=== PATIENT | female | born 1975 | race Caucasian/White ===

== ENCOUNTER 2017-04-13 20:06 | Emergency (ER) | payer MEDICAID ==
[~2017-04-13] VITALS: Ht 147.3 cm; Wt 65.8 kg
[2017-04-13 20:08] VITALS: BP 118/78
--- NOTE | 2017-04-13 20:08 | NUR ---
BIBA TO ER OF1
--- NOTE | 2017-04-13 20:36 | NUR ---
Patient being evaluated by DR. EUGENE at bedside.
[2017-04-13] MEDS ORDERED: KETOROLAC 30 MG/ML VIAL IM ONE (20:40)
[2017-04-13] MEDS ORDERED: LORazepam 1 MG TAB PO ONE (20:40)
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
[2017-04-13 21:50] LABS: BASOPHILS # (AUTO) 0.1 K/uL (0.00-0.22); BASOPHILS % (AUTO) 1.7 % (0.0-2.0); EOSINOPHILS # (AUTO) 0.2 K/uL (0-0.4); EOSINOPHILS % (AUTO) 2.4 % (0.0-4.0); HEMOGLOBIN 9.9 g/dL (12.0-16.0); LYMPHOCYTES # (AUTO) 1.3 K/uL (2.5-16.5); LYMPHOCYTES % (AUTO) 15.6 % (20.5-51.1); MEAN CORPUSCULAR HEMOGLOBIN 23 pg (27-31); MEAN CORPUSCULAR HGB CONC 32 g/dL (33-37); MEAN CORPUSCULAR VOLUME 72 fL (80-94); MONOCYTES # (AUTO) 0.6 K/uL (0.8-1.0); MONOCYTES % (AUTO) 7.6 % (1.7-9.3); NEUTROPHILS # (AUTO) 6.3 K/uL (1.8-7.7); NEUTROPHILS % (AUTO) 72.7 % (42.2-75.2); PLATELET COUNT (AUTO) 287 K/uL (140-450); RED BLOOD CELL COUNT(AUTO) 4.28 MIL/uL (4.20-5.40); RED CELL DISTRIBUTION WIDTH 18.1 % (11.6-13.7); WHITE BLOOD COUNT (AUTO) 8.5 K/uL (4.8-10.8)
[2017-04-13 22:00] LABS: ANION GAP 10.1 (8-16); CARBON DIOXIDE 26.9 mmol/L (21-32); CREATININE 0.9 mg/dL (0.6-1.3)
--- NOTE | 2017-04-13 22:30 | NUR ---
Patient discharged with v/s stable. Written and verbal after care instructions given and explained. Patient verbalized understanding. Ambulatory with steady gait. All questions addressed prior to discharge. Advised to follow up with PMD.
[2017-04-13 22:33] VITALS: BP 109/69
== END 2017-04-13 22:30 | disposition home or self-care (01) ==
LOC: MED 20:06
DX: F07.81 Postconcussional syndrome (principal)
CPT/HCPCS: 36415; 80048; 84484; 85025; 93005; 96372; 99285; J1885

== ENCOUNTER 2017-08-15 12:38 | Emergency (ER) | payer MEDICAID ==
[~2017-08-15] VITALS: Ht 142.2 cm; Wt 67.6 kg
[2017-08-15 12:43] VITALS: BP 116/72
--- NOTE | 2017-08-15 12:48 | NUR ---
PATIENT PRESENTS TO ED WITH C/O DIZZINESS SINCE YESTERDAY AND C/O VOMITING WITH AMBULATING HX; DENIES; DENIES DIARRHEA; SKIN IS PINK/WARM/DRY; AAOX4 WITH EVEN AND STEADY GAIT; LUNGS CLEAR BL; HR EVEN AND REGULAR; PT DENIES ANY FEVER, CP, SOB, OR COUGH AT THIS TIME; PATIENT STATES PAIN OF 10/10 AT THIS TIME; VSS; PATIENT POSITIONED FOR COMFORT; HOB ELEVATED; BEDRAILS UP X2; BED DOWN. ER MD MADE AWARE OF PT STATUS.
[2017-08-15] MEDS ORDERED: ONDANSETRON 4 MG ODT PO ONE (12:55)
[2017-08-15] MEDS ORDERED: KETOROLAC 30 MG/ML VIAL IVP ONE (13:00)
[2017-08-15] MEDS ORDERED: NACL 0.9% 1,000 ML IV ONE ×2 (13:00→13:50)
[2017-08-15] MEDS ORDERED: ONDANSETRON 4 MG/2 ML VIAL IVP ONE (13:00)
[2017-08-15] MEDS ORDERED: DICYCLOMINE HCL LIQUID 20 MG, ALUMINUM HYD/MAG/SIMETHICONE 30 ML, LIDOCAINE VISCOUS 2% ... PO ONE ×3 (13:50)
[2017-08-15 14:26] VITALS: BP 126/86
--- NOTE | 2017-08-15 14:26 | NUR ---
Patient discharged with v/s stable. Written and verbal after care instructions given and explained. Patient alert, oriented and verbalized understanding of instructions. Ambulatory with steady gait. All questions addressed prior to discharge. ID band removed. Patient advised to follow up with PMD. Rx of ZOFRAN, MOTRIN given. Patient educated on indication of medication including possible reaction and side effects. Opportunity to ask questions provided and answered.
== END 2017-08-15 14:26 | disposition home or self-care (01) ==
LOC: MED 12:38
DX: R11.2 Nausea with vomiting, unspecified (principal); R10.13 Epigastric pain; R42 Dizziness and giddiness
CPT/HCPCS: 81002; 81025; 96361; 96374; 96375; 99284; J1885; J2405; J7030; S0119

== ENCOUNTER 2017-09-27 19:49 | Emergency (ER) | payer MEDICAID ==
[~2017-09-27] VITALS: Ht 144.8 cm; Wt 67.8 kg
[2017-09-27 20:02] VITALS: BP 128/88
--- NOTE | 2017-09-27 20:06 | NUR ---
42/F CAME IN W C/O 03/31 RT FLANK PAIN, NONRADIAITING, ACUTE ONSET X 3 HOURS AGO. REPORTS NAUSEA, DENIES V/D, FEVER/CHILLS, DENIES HEMATURIA/DYSURIA. ABD SOFT, ROUND, BS ACTIVE X4, +TENDERNESS TO RT FLANK. DENIES OTHER PMH/RX/OTC
[2017-09-27] MEDS ORDERED: MORPHINE SULFATE 4 MG/ML SYR IVP ONE ×2 (20:35→21:20)
[2017-09-27] MEDS ORDERED: NACL 0.9% 1,000 ML IV ONE (20:35)
[2017-09-27] MEDS ORDERED: ONDANSETRON 4 MG/2 ML VIAL IVP ONE (20:35)
[2017-09-27 20:55] LABS: BASOPHILS % (AUTO) 0.3 % (0.0-2.0); EOSINOPHILS # (AUTO) 0.3 K/uL (0-0.4); EOSINOPHILS % (AUTO) 3.6 % (0.0-4.0); HEMATOCRIT 27.2 % (36-48); HEMOGLOBIN 8.5 g/dL (12.0-16.0); LYMPHOCYTES # (AUTO) 1.7 K/uL (2.5-16.5); LYMPHOCYTES % (AUTO) 23.9 % (20.5-51.1); MEAN CORPUSCULAR HEMOGLOBIN 22 pg (27-31); MEAN CORPUSCULAR HGB CONC 31 g/dL (33-37); MONOCYTES # (AUTO) 0.6 K/uL (0.8-1.0); MONOCYTES % (AUTO) 8.1 % (1.7-9.3); NEUTROPHILS # (AUTO) 4.6 K/uL (1.8-7.7); NEUTROPHILS % (AUTO) 64.1 % (42.2-75.2); PLATELET COUNT (AUTO) 239 K/uL (140-450); RED BLOOD CELL COUNT(AUTO) 3.83 MIL/uL (4.20-5.40); RED CELL DISTRIBUTION WIDTH 18.2 % (11.6-13.7); WHITE BLOOD COUNT (AUTO) 7.2 K/uL (4.8-10.8)
[2017-09-27 20:56] LABS: APPEARANCE,URINE CLEAR (CLEAR); BILIRUBIN,URINE NEGATIVE (NEGATIVE); BLOOD, URINE NEGATIVE (NEGATIVE); COLOR,URINE YELLOW (YELLOW); LEUKOCYTE ESTERASE ,URINE NEGATIVE (NEGATIVE); NITRITE, URINE NEGATIVE (NEGATIVE); UGLUCOSE NEGATIVE (NEGATIVE)
[2017-09-27 21:03] LABS: ANION GAP 13.2 (8-16); CARBON DIOXIDE 26.2 mmol/L (21-32); CREATININE 0.7 mg/dL (0.6-1.3); POTASSIUM 3.4 mmol/L (3.5-5.1)
[2017-09-27 21:09] LABS: ALBUMIN 3.4 g/dL (3.4-5.0); TOTAL BILIRUBIN 0.2 mg/dL (0.0-1.0)
--- NOTE | 2017-09-27 22:05 | NUR ---
PT BACK FROM CT
--- NOTE | 2017-09-27 22:31 | NUR ---
REPORTS IMPROVEMENT OF PAIN /10 TO RLQ. ER MADE AWARE
--- NOTE | 2017-09-27 22:36 | NUR ---
ULTRASOUND AT BEDSIDE
--- NOTE | 2017-09-27 23:50 | NUR ---
radiology called US tech for patient.
--- NOTE | 2017-09-28 01:00 | NUR ---
Patient appears to be resting comfortably in bed. Vital Signs within normal limits. Respirations even and unlabored. REPORTS 08/29 TO RUQ ABD PAIN
--- NOTE | 2017-09-28 01:45 | NUR ---
US AT BEDSIDE
--- NOTE | 2017-09-28 02:45 | NUR ---
Patient appears to be resting comfortably in bed. Vital Signs within normal limits. Respirations even and unlabored. denies any pain at this time
[2017-09-28 03:24] VITALS: BP 112/76
== END 2017-09-28 03:24 | disposition home or self-care (01) ==
LOC: MED 19:49
DX: K59.00 Constipation, unspecified (principal); D64.9 Anemia, unspecified; E87.6 Hypokalemia; Z90.49 Acquired absence of other specified parts of digestive tract
CPT/HCPCS: 36415; 74177; 76705; 76856; 80053; 81003; 81025; 83605; 83690; 84702; 85025; 87040; 96361; 96374; 96375; 96376; 99285; J2270; J2405; J7030; Q0092; Q9967

== ENCOUNTER 2017-11-05 21:05 | Emergency (ER) | payer MEDICAID ==
[~2017-11-05] VITALS: Ht 142.2 cm; Wt 70.1 kg
[2017-11-05 21:18] VITALS: BP 117/74
--- NOTE | 2017-11-05 21:20 | NUR ---
PT.AMBULATED TO [facility]
--- NOTE | 2017-11-05 22:28 | NUR ---
PT AMBULATORY TO BED 7 W/ STEADY GAIT.
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
[2017-11-05] MEDS ORDERED: MORPHINE SULFATE 4 MG/ML SYR IVP ONE (23:00)
--- NOTE | 2017-11-06 | NUR ---
PT RESTING COMFORTABLY, VSS, RR EVEN AND UNLABORED. ALL NEEDS MET.
[2017-11-06 00:09] LABS: BASOPHILS # (AUTO) 0.1 K/uL (0.00-0.22); BASOPHILS % (AUTO) 1.6 % (0.0-2.0); EOSINOPHILS # (AUTO) 0.3 K/uL (0-0.4); EOSINOPHILS % (AUTO) 4.2 % (0.0-4.0); HEMATOCRIT 28.4 % (36-48); HEMOGLOBIN 8.8 g/dL (12.0-16.0); LYMPHOCYTES # (AUTO) 1.3 K/uL (2.5-16.5); LYMPHOCYTES % (AUTO) 21.3 % (20.5-51.1); MEAN CORPUSCULAR HEMOGLOBIN 22 pg (27-31); MEAN CORPUSCULAR HGB CONC 31 g/dL (33-37); MEAN CORPUSCULAR VOLUME 70.5 fL (80-94); MONOCYTES # (AUTO) 0.5 K/uL (0.8-1.0); MONOCYTES % (AUTO) 7.5 % (1.7-9.3); NEUTROPHILS # (AUTO) 3.9 K/uL (1.8-7.7); NEUTROPHILS % (AUTO) 65.4 % (42.2-75.2); PLATELET COUNT (AUTO) 275 K/uL (140-450); RED BLOOD CELL COUNT(AUTO) 4.02 MIL/uL (4.20-5.40); RED CELL DISTRIBUTION WIDTH 18.1 % (11.6-13.7); WHITE BLOOD COUNT (AUTO) 6.1 K/uL (4.8-10.8)
[2017-11-06 00:31] LABS: PROTHROMBIN TIME 10.2 secs (10.8-13.4)
[2017-11-06 01:14] LABS: APPEARANCE,URINE CLEAR (CLEAR); COLOR,URINE RED (YELLOW)
[2017-11-06 01:15] LABS: BILIRUBIN,URINE 1+ (NEGATIVE); BLOOD, URINE 3+ (NEGATIVE); LEUKOCYTE ESTERASE ,URINE 1+ (NEGATIVE); NITRITE, URINE NEGATIVE (NEGATIVE); UGLUCOSE NEGATIVE (NEGATIVE)
[2017-11-06 01:49] LABS: RBC,URINE TOO NUMEROUS TO COUN /HPF (0-5)
[2017-11-06 01:57] LABS: ANION GAP 14.6 (8-16); CARBON DIOXIDE 24.9 mmol/L (21-32); CHLORIDE 103 mmol/L (98-107); CREATININE 0.8 mg/dL (0.6-1.3); GFR ARICAN-AMERICAN 101 mL/min (>90); GLUCOSE 126 mg/dL (74-106); POTASSIUM 3.5 mmol/L (3.5-5.1); SODIUM SERUM 139 mmol/L (136-145); UREA NITROGEN, BLOOD 14 mg/dL (7-18)
[2017-11-06 01:58] LABS: ALBUMIN 3.5 g/dL (3.4-5.0); AMYLASE 63 U/L (25-115); ASPARTATE AMINOTRANSFERASE 24 U/L (15-37); LIPASE 183 U/L (73-393)
--- NOTE | 2017-11-06 02:03 | NUR ---
PT RESTING COMFORTABLY, VSS, RR EVEN AND UNLABORED. ALL NEEDS MET.
[2017-11-06] MEDS ORDERED: cefTRIAXone 1,000 MG VIAL ONE (02:49)
[2017-11-06 03:41] VITALS: BP 145/74
--- NOTE | 2017-11-06 03:42 | NUR ---
Patient discharged with v/s stable. Written and verbal after care instructions given and explained. Patient alert, oriented and verbalized understanding of instructions. Ambulatory with steady gait. All questions addressed prior to discharge. ID band removed. Patient advised to follow up with PMD. Rx of CEPHALEXIN 500MG given. Patient educated on indication of medication including possible reaction and side effects. Opportunity to ask questions provided and answered.
== END 2017-11-06 03:42 | disposition home or self-care (01) ==
LOC: MED 21:05
DX: N39.0 Urinary tract infection, site not specified (principal)
CPT/HCPCS: 36415; 74176; 80053; 81001; 81025; 82150; 83605; 83690; 84484; 85025; 85610; 87040; 87086; 93005; 96365; 96375; 99284; J0696; J2270; J7060

== ENCOUNTER 2018-06-01 13:00 | Emergency (ER) | payer MEDICAID ==
[~2018-06-01] VITALS: Ht 154.9 cm; Wt 63.5 kg
[2018-06-01 13:10] VITALS: BP 114/84
[2018-06-01] MEDS ORDERED: ONDANSETRON 4 MG/2 ML VIAL IVP ONE (14:30)
[2018-06-01] MEDS ORDERED: NACL 0.9% 1,000 ML IV ONE (14:30)
[2018-06-01 14:52] LABS: BASOPHILS % (AUTO) 0.3 % (0.0-2.0); EOSINOPHILS % (AUTO) 0.4 % (0.0-4.0); HEMATOCRIT 28.9 % (36-48); LYMPHOCYTES # (AUTO) 1.1 K/uL (2.5-16.5); MEAN CORPUSCULAR HEMOGLOBIN 22 pg (27-31); MEAN CORPUSCULAR HGB CONC 31 g/dL (33-37); MEAN CORPUSCULAR VOLUME 69.8 fL (80-94); MONOCYTES # (AUTO) 0.5 K/uL (0.8-1.0); NEUTROPHILS # (AUTO) 7.6 K/uL (1.8-7.7); NEUTROPHILS % (AUTO) 82.3 % (42.2-75.2); PLATELET COUNT (AUTO) 300 K/uL (140-450); RED BLOOD CELL COUNT(AUTO) 4.14 MIL/uL (4.20-5.40); RED CELL DISTRIBUTION WIDTH 19.5 % (11.6-13.7); WHITE BLOOD COUNT (AUTO) 9.3 K/uL (4.8-10.8)
[2018-06-01 15:14] LABS: ALBUMIN 3.5 g/dL (3.4-5.0); ANION GAP 14.7 (8-16); CARBON DIOXIDE 24.8 mmol/L (21-32); CREATININE 0.6 mg/dL (0.6-1.3); POTASSIUM 3.5 mmol/L (3.5-5.1); TOTAL BILIRUBIN 0.2 mg/dL (0.0-1.0)
[2018-06-01 16:15] VITALS: BP 101/48
== END 2018-06-01 16:15 | disposition home or self-care (01) ==
LOC: MED 13:00
DX: R19.7 Diarrhea, unspecified (principal); R10.9 Unspecified abdominal pain; R42 Dizziness and giddiness; R51 Headache
CPT/HCPCS: 36415; 80053; 81025; 85025; 96361; 96374; 99283; J2405; J7030

== ENCOUNTER 2018-07-27 08:03 | Emergency (ER) | payer MEDICAID ==
[~2018-07-27] VITALS: Ht 147.3 cm; Wt 68.0 kg
[2018-07-27 08:22] VITALS: BP 128/87
--- NOTE | 2018-07-27 08:22 | NUR ---
TO BED 9 AMBULATORYM MEDICATED PER PROTOCOL TOLERATED WELL.
[2018-07-27] MEDS ORDERED: ACETAMINOPHEN EXTRA STRENGTH 500 MG TAB PO ONE (08:25)
--- NOTE | 2018-07-27 08:31 | NUR ---
Ancelmo alcantar in [facility] - 07/27/18 at 0831 by RUKHSANA PATIENT AMBULATED TO BED 9 AT THIS TIME.
--- NOTE | 2018-07-27 08:46 | NUR ---
PATIENT PRESENTS TO ED WITH accompanied by c/o fever/chills, hacking cough, nasal/chest congestion, bodyaches, fatigue x 2 days seen in [facility] yesterday; adds feels much worse today pt appearing lethargic---denies n/v/d . SKIN IS PINK/WARM/DRY; AAOX4 WITH EVEN AND STEADY GAIT; LUNGS CLEAR BL; HR EVEN AND REGULAR;; PATIENT STATES PAIN OF 8/10 AT THIS TIME; VSS; PATIENT POSITIONED FOR COMFORT; HOB ELEVATED; BEDRAILS UP X2; BED DOWN. ER MD MADE AWARE OF PT STATUS.
--- NOTE | 2018-07-27 09:15 | NUR ---
REPORT RECEIVED FROM MARIELA SIMON.
--- NOTE | 2018-07-27 09:40 | NUR ---
MITER OPERATOR AT BEDSIDE
[2018-07-27] MEDS ORDERED: NACL 0.9% 2,000 ML IV SCH (09:51)
[2018-07-27] MEDS ORDERED: KETOROLAC 30 MG/ML VIAL IVP ONE (09:55)
[2018-07-27] MEDS ORDERED: diphenhydrAMINE 50 MG/ML VIAL IVP ONE (09:55)
[2018-07-27] MEDS ORDERED: METOCLOPRAMIDE 10 MG/2 ML INJ VIAL IVP ONE (09:55)
--- NOTE | 2018-07-27 10:00 | NUR ---
PT ON STRETCHER IN SUPINE POSITION WITH EYES OPEN, ALERT AND ORIENTED X 4, DENIES CP/SOB AT THIS TIME. NO IDENTIFIED REQUESTS AT THIS TIME.
[2018-07-27 10:34] LABS: APPEARANCE,URINE CLEAR (CLEAR); BILIRUBIN,URINE NEGATIVE (NEGATIVE); BLOOD, URINE TRACE-I (NEGATIVE); COLOR,URINE YELLOW (YELLOW); LEUKOCYTE ESTERASE ,URINE NEGATIVE (NEGATIVE); NITRITE, URINE NEGATIVE (NEGATIVE); UGLUCOSE NEGATIVE (NEGATIVE)
[2018-07-27 10:48] LABS: BASOPHILS % (AUTO) 0.1 % (0.0-2.0); EOSINOPHILS % (AUTO) 0.4 % (0.0-4.0); HEMATOCRIT 27.2 % (36-48); HEMOGLOBIN 8.5 g/dL (12.0-16.0); LYMPHOCYTES # (AUTO) 0.3 K/uL (2.5-16.5); LYMPHOCYTES % (AUTO) 5.2 % (20.5-51.1); MEAN CORPUSCULAR HEMOGLOBIN 21 pg (27-31); MEAN CORPUSCULAR HGB CONC 31 g/dL (33-37); MONOCYTES # (AUTO) 0.6 K/uL (0.8-1.0); MONOCYTES % (AUTO) 10.8 % (1.7-9.3); NEUTROPHILS # (AUTO) 4.9 K/uL (1.8-7.7); NEUTROPHILS % (AUTO) 83.5 % (42.2-75.2); PLATELET COUNT (AUTO) 240 K/uL (140-450); RED BLOOD CELL COUNT(AUTO) 4.01 MIL/uL (4.20-5.40); RED CELL DISTRIBUTION WIDTH 18.7 % (11.6-13.7); WHITE BLOOD COUNT (AUTO) 5.9 K/uL (4.8-10.8)
[2018-07-27 10:53] LABS: RBC,URINE 0-5 (RARE) /HPF (0-5); WBC,URINE 0-5 (RARE) /HPF (0-5)
[2018-07-27 11:06] LABS: ANION GAP 14.9 (8-16); CREATININE 0.6 mg/dL (0.6-1.3); POTASSIUM 3.9 mmol/L (3.5-5.1)
[2018-07-27 11:12] LABS: ALBUMIN 3.6 g/dL (3.4-5.0); TOTAL BILIRUBIN 0.3 mg/dL (0.0-1.0)
[2018-07-27 11:19] LABS: PROTHROMBIN TIME 10.1 secs (10.8-13.4)
--- NOTE | 2018-07-27 12:19 | NUR ---
PT AMBULATED TO RESTROOM WITHOUT INCIDENCE, PLACED BACK ON FULL MONITOR.
[2018-07-27 13:32] VITALS: BP 97/58
--- NOTE | 2018-07-27 13:32 | NUR ---
IV removed, catheter intact and site benign. Applied folded 4x4 gauze and tape to stop bleeding.
--- NOTE | 2018-07-27 13:33 | NUR ---
Patient discharged with v/s stable. Written and verbal after care instructions given and explained. Patient alert, oriented and verbalized understanding of instructions. Ambulatory with steady gait. All questions addressed prior to discharge. ID band removed. Patient advised to follow up with PMD. Rx of Tamiflu, Promethazine DM, and Motrin given. Patient educated on indication of medication including possible reaction and side effects. Opportunity to ask questions provided and answered.
== END 2018-07-27 13:33 | disposition home or self-care (01) ==
LOC: MED 08:03
DX: J10.1 Influenza due to other identified influenza virus with other respiratory manifestations (principal); A09 Infectious gastroenteritis and colitis, unspecified
CPT/HCPCS: 36415; 36600; 71045; 80053; 81001; 81025; 82803; 83605; 84484; 85025; 85610; 85730; 87040; 87086; 87804; 93005; 96361; 96374; 96375; 99284; J1200; J1885; J2765; J7030; Q0092

== ENCOUNTER 2018-10-20 19:46 | Emergency (ER) | payer MEDICAID ==
[~2018-10-20] VITALS: Ht 147.3 cm; Wt 69.9 kg
[2018-10-20 19:59] VITALS: BP 115/73
--- NOTE | 2018-10-20 19:59 | NUR ---
TO BED # 01 AMB. REPORT GIVEN TO TAMIKA SIMON
--- NOTE | 2018-10-20 20:00 | NUR ---
43 YO F BIB PRESENTS TO THE ED C/O RIGHT SIDE FLANK PAIN X 3 DAYS. PT DENIES NVD, FEVER, CHILL OR CHANGE IN BOWEL OR URINARY HABITS. DENIES DYSURIA, URINARY BURNING. -- ABD IS LARGE, SOFT, WITH RIGHT SIDED TENDERNESS PRESENT. BOWEL SOUNDS ACTIVE. LAST BM: TODAY. -- SKIN PINK, DRY, WARM. -- PT APPEARS TO BE IN PAIN, TEARFUL. COOPERATIVE, BEHAVIOR APPROPRIATE. PMH-- HYPERLIPIDEMIA RX- DENIES
[2018-10-20] MEDS ORDERED: MORPHINE SULFATE 4 MG/ML SYR IVP ONE ×2 (20:10→21:00)
[2018-10-20] MEDS ORDERED: NACL 0.9% 1,000 ML IV ONE (20:10)
[2018-10-20 20:30] LABS: BASOPHILS % (AUTO) 0.2 % (0.0-2.0); EOSINOPHILS # (AUTO) 0.3 K/uL (0-0.4); EOSINOPHILS % (AUTO) 3.4 % (0.0-4.0); HEMATOCRIT 25.7 % (36-48); LYMPHOCYTES # (AUTO) 1.5 K/uL (2.5-16.5); LYMPHOCYTES % (AUTO) 18.5 % (20.5-51.1); MEAN CORPUSCULAR HEMOGLOBIN 21 pg (27-31); MEAN CORPUSCULAR HGB CONC 31 g/dL (33-37); MONOCYTES # (AUTO) 0.7 K/uL (0.8-1.0); MONOCYTES % (AUTO) 8.1 % (1.7-9.3); NEUTROPHILS # (AUTO) 5.8 K/uL (1.8-7.7); NEUTROPHILS % (AUTO) 69.8 % (42.2-75.2); PLATELET COUNT (AUTO) 279 K/uL (140-450); RED BLOOD CELL COUNT(AUTO) 3.84 MIL/uL (4.20-5.40); WHITE BLOOD COUNT (AUTO) 8.3 K/uL (4.8-10.8)
--- NOTE | 2018-10-20 20:35 | NUR ---
US IN PROGRESS AT BEDSIDE.
--- NOTE | 2018-10-20 20:35 | NUR ---
PT RECEIVED MORPHINE 4 MG IVP FOR PAIN.
--- NOTE | 2018-10-20 21:00 | NUR ---
PT REPORTS 03/[address] PIERSON NOTIFIED. NEW ORDERS RECEIVED.
--- NOTE | 2018-10-20 21:10 | NUR ---
PT RECEIVED MORPHINE 4 MG IVP FOR PAIN.
[2018-10-20 21:13] LABS: APPEARANCE,URINE CLOUDY (CLEAR); BILIRUBIN,URINE NEGATIVE (NEGATIVE); BLOOD, URINE NEGATIVE (NEGATIVE); COLOR,URINE YELLOW (YELLOW); LEUKOCYTE ESTERASE ,URINE TRACE (NEGATIVE); NITRITE, URINE NEGATIVE (NEGATIVE); UGLUCOSE NEGATIVE (NEGATIVE)
--- NOTE | 2018-10-20 21:17 | NUR ---
PT TAKEN DOWN TO CT VIA WC.
[2018-10-20 21:22] LABS: ALBUMIN 3.4 g/dL (3.4-5.0); CARBON DIOXIDE 26.1 mmol/L (21-32); CREATININE 0.7 mg/dL (0.6-1.3); TOTAL BILIRUBIN 0.2 mg/dL (0.0-1.0)
[2018-10-20 21:24] LABS: RBC,URINE 0 /HPF (0-5); WBC,URINE 0-5 /HPF (0-5)
[2018-10-20 21:25] LABS: URINE AMORPHOUS URATE 3+ /HPF (None Seen)
--- NOTE | 2018-10-20 21:30 | NUR ---
PT RETURNED FROM CT.
[2018-10-20 21:33] LABS: POTASSIUM 3.8 mmol/L (3.5-5.1)
[2018-10-20 21:34] LABS: ANION GAP 12.7 (8-16)
--- NOTE | 2018-10-20 21:45 | NUR ---
PT REPORTS 8/[address] PIERSON NOTIFIED. PT WILL RECEIVE RX FOR PAIN MEDICATION.
--- NOTE | 2018-10-20 21:45 | NUR ---
CT REPORT: Impression: 1. No evidence for acute inflammatory process within the abdomen or pelvis. 2. There is no renal or ureteral stone identified. 3. A normal appendix is visualized within the right lower quadrant. 4. There is no bowel obstruction.
[2018-10-20 22:55] VITALS: BP 123/78
--- NOTE | 2018-10-20 22:55 | NUR ---
Patient discharged with v/s stable. Written and verbal after care instructions given and explained. Patient alert, oriented and verbalized understanding of instructions. Ambulatory with steady gait. All questions addressed prior to discharge. ID band removed. Patient advised to follow up with PMD. Rx of Andes given. Patient educated on indication of medication including possible reaction and side effects. Opportunity to ask questions provided and answered.
== END 2018-10-20 22:55 | disposition home or self-care (01) ==
LOC: MED 19:46
DX: R10.11 Right upper quadrant pain (principal); D64.9 Anemia, unspecified; R19.7 Diarrhea, unspecified
CPT/HCPCS: 36415; 74176; 76705; 80053; 81001; 83690; 85025; 96361; 96374; 96376; 99284; J2270; J7030; Q0092

== ENCOUNTER 2019-04-05 20:36 | Emergency (ER) | payer MEDICAID ==
[~2019-04-05] VITALS: Ht 142.2 cm; Wt 71.7 kg
[2019-04-05 20:47] VITALS: BP 131/71
--- NOTE | 2019-04-05 20:47 | NUR ---
PT AMBULATED TO BED WITH FAMILY
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
--- NOTE | 2019-04-05 21:29 | NUR ---
Dr. Zuluaga examining patient.
[2019-04-05 22:10] LABS: BASOPHILS % (AUTO) 0.3 % (0.0-2.0); EOSINOPHILS # (AUTO) 0.1 K/uL (0-0.4); EOSINOPHILS % (AUTO) 1.8 % (0.0-4.0); HEMATOCRIT 26.8 % (36-48); HEMOGLOBIN 8.3 g/dL (12.0-16.0); LYMPHOCYTES # (AUTO) 1.6 K/uL (2.5-16.5); LYMPHOCYTES % (AUTO) 21.8 % (20.5-51.1); MEAN CORPUSCULAR HEMOGLOBIN 21 pg (27-31); MEAN CORPUSCULAR HGB CONC 31 g/dL (33-37); MEAN CORPUSCULAR VOLUME 67.4 fL (80-94); MONOCYTES # (AUTO) 0.6 K/uL (0.8-1.0); MONOCYTES % (AUTO) 7.9 % (1.7-9.3); NEUTROPHILS # (AUTO) 5.2 K/uL (1.8-7.7); NEUTROPHILS % (AUTO) 68.2 % (42.2-75.2); PLATELET COUNT (AUTO) 290 K/uL (140-450); RED BLOOD CELL COUNT(AUTO) 3.98 MIL/uL (4.20-5.40); RED CELL DISTRIBUTION WIDTH 20.4 % (11.6-13.7); WHITE BLOOD COUNT (AUTO) 7.6 K/uL (4.8-10.8)
[2019-04-05 22:26] LABS: ANION GAP 10.7 (8-16); CARBON DIOXIDE 26.8 mmol/L (21-32); CREATININE 0.7 mg/dL (0.6-1.3); POTASSIUM 3.5 mmol/L (3.5-5.1)
[2019-04-05 22:33] LABS: ALBUMIN 3.4 g/dL (3.4-5.0); TOTAL BILIRUBIN 0.2 mg/dL (0.0-1.0)
[2019-04-05 23:34] VITALS: BP 120/88
--- NOTE | 2019-04-05 23:34 | NUR ---
DISCHARGE PAPERS GIVEN TO PT. STATES RELIEF. NO CHEST PAIN. VSS. RX OF IBUPROFEN GIVEN. PROVIDED WITH PHONE NUMBER AND ADDRESS TO PCP IN [facility]. INSTRUCTED TO F/U WITH PCP AND WHEN TO RETURN TO ER. PT VERBALLIZED UNDERSTANDING OF DC INSTRUCTIONS. ALL QUESTIONS ANSWERED.
== END 2019-04-05 23:34 | disposition home or self-care (01) ==
LOC: MED 20:36
DX: R07.9 Chest pain, unspecified (principal); D64.9 Anemia, unspecified; Z98.890 Other specified postprocedural states
CPT/HCPCS: 36415; 71045; 80053; 81025; 84484; 85025; 93005; 99284

== ENCOUNTER 2020-06-10 09:57 | Emergency (ER) | payer MEDICAID, SELFPAY ==
[~2020-06-10] VITALS: Ht 149.9 cm; Wt 74.8 kg
[2020-06-10 10:09] VITALS: BP 128/71
--- NOTE | 2020-06-10 10:14 | NUR ---
PATIENT TRIAGED. WAITING TO BE SEEN BY MD IN TENT.
--- NOTE | 2020-06-10 11:24 | NUR ---
PT PROVIDED A SANDWICH PER REQUEST
[2020-06-10 11:40] VITALS: BP 128/71
--- NOTE | 2020-06-10 11:40 | NUR ---
NOVEL SWAB DONE. WALKED TO LAB
--- NOTE | 2020-06-10 11:40 | NUR ---
Patient discharged with v/s stable. Written and verbal after care instructions given and explained. Patient alert, oriented and verbalized understanding of instructions. Ambulatory with steady gait. All questions addressed prior to discharge. ID band removed. Patient advised to follow up with PMD. Rx of ZOFRAN, TYLENOL, CODEINE given. Patient educated on indication of medication including possible reaction and side effects. Opportunity to ask questions provided and answered.
== END 2020-06-10 11:40 | disposition home or self-care (01) ==
LOC: MED 09:57
DX: U07.1 COVID-19 (principal); B34.9 Viral infection, unspecified
CPT/HCPCS: 99283; U0003

== ENCOUNTER 2020-12-11 20:04 | Emergency (ER) | payer MEDICAID, SELFPAY ==
[~2020-12-11] VITALS: Ht 149.9 cm; Wt 79.4 kg
[2020-12-11 20:13] VITALS: BP 119/73
--- NOTE | 2020-12-11 20:13 | NUR ---
to bed ambulatory
--- NOTE | 2020-12-11 20:23 | NUR ---
Came from home c/o headache along with neck pain that started 5 days ago and also Abdominal pain in the RLQ. pain of /. Reports taking tylenol but with no relief. AAOx4. PMH: denies NKA
--- NOTE | 2020-12-11 20:26 | NUR ---
patient ambulated to the bathroom for urine collection
[2020-12-11] MEDS ORDERED: LIDOCAINE MPF 1% 10 MG/ML VIAL INJ ONE (20:40)
[2020-12-11] MEDS ORDERED: KETOROLAC 15 MG/ML VIAL IM ONE (20:40)
--- NOTE | 2020-12-11 21:01 | NUR ---
Xylocaine medication administered by WANG Jones.
[2020-12-11 21:56] LABS: BASOPHILS % (AUTO) 0.3 % (0.0-2.0); EOSINOPHILS # (AUTO) 0.1 K/uL (0-0.4); EOSINOPHILS % (AUTO) 1.5 % (0.0-4.0); HEMATOCRIT 26.9 % (36-48); HEMOGLOBIN 8.6 g/dL (12.0-16.0); LYMPHOCYTES # (AUTO) 1.7 K/uL (2.5-16.5); LYMPHOCYTES % (AUTO) 22.8 % (20.5-51.1); MEAN CORPUSCULAR HEMOGLOBIN 23 pg (27-31); MEAN CORPUSCULAR HGB CONC 32 g/dL (33-37); MEAN CORPUSCULAR VOLUME 71.9 fL (80-94); MONOCYTES # (AUTO) 0.5 K/uL (0.8-1.0); MONOCYTES % (AUTO) 7.4 % (1.7-9.3); PLATELET COUNT (AUTO) 300 K/uL (140-450); RED BLOOD CELL COUNT(AUTO) 3.75 MIL/uL (4.20-5.40); RED CELL DISTRIBUTION WIDTH 18.7 % (11.6-13.7); WHITE BLOOD COUNT (AUTO) 7.3 K/uL (4.8-10.8)
--- NOTE | 2020-12-11 21:57 | NUR ---
dimmed patient lights for comfort measures. safety measures in place. Will continue to monitor
[2020-12-11 22:08] LABS: ANION GAP 13.7 (8-16); CARBON DIOXIDE 25.2 mmol/L (21-32); POTASSIUM 3.9 mmol/L (3.5-5.1)
[2020-12-11 22:14] LABS: TOTAL BILIRUBIN 0.2 mg/dL (0.0-1.0)
[2020-12-11 22:47] LABS: APPEARANCE,URINE CLEAR (CLEAR); BILIRUBIN,URINE NEGATIVE (NEGATIVE); BLOOD, URINE 3+ (NEGATIVE); COLOR,URINE RED (YELLOW); LEUKOCYTE ESTERASE ,URINE TRACE (NEGATIVE); NITRITE, URINE NEGATIVE (NEGATIVE); UGLUCOSE NEGATIVE (NEGATIVE)
[2020-12-11 22:54] LABS: RBC,URINE TOO NUMEROUS TO COUN /HPF (0-5)
--- NOTE | 2020-12-11 22:56 | NUR ---
Patient appears to be resting comfortably in bed. Vital Signs within normal limits. Respirations even and unlabored. Reported that pain has decreased and only has a little bit of pain. Safety measures are in place. More[place] continue to monitor
--- NOTE | 2020-12-11 23:12 | NUR ---
ERMD at bedside for re-examination and to speak to patient about results
[2020-12-11] MEDS ORDERED: METH-1681 PO (23:32)
[2020-12-11] MEDS ORDERED: IBUP-2213 PO (23:32)
--- NOTE | 2020-12-12 00:37 | NUR ---
Patient discharged with v/s stable. Written and verbal after care instructions given and explained. Patient alert, oriented and verbalized understanding of instructions. Ambulatory with steady gait. All questions addressed prior to discharge. ID band removed. Patient advised to follow up with PMD. Rx of Robaxin,ibuprofen given. Patient educated on indication of medication including possible reaction and side effects. Opportunity to ask questions provided and answered.
[2020-12-12 00:39] VITALS: BP 113/72
== END 2020-12-12 00:37 | disposition home or self-care (01) ==
LOC: MED 20:04
DX: M54.2 Cervicalgia (principal); R10.9 Unspecified abdominal pain; Z79.899 Other long term (current) drug therapy
CPT/HCPCS: 36415; 64450; 80053; 81001; 81025; 83690; 85025; 87086; 96372; 99284; J1885; J2001; 99283

== ENCOUNTER 2021-02-18 20:00 | Emergency (ER) | payer MEDICAID ==
[~2021-02-18] VITALS: Ht 129.5 cm; Wt 74.8 kg
[~2021-02-18 20:00] MED LIST: IBUP-2213 PO; METH-1681 PO
[2021-02-18 20:13] VITALS: BP 138/83
[2021-02-18] MEDS ORDERED: KETOROLAC 60 MG/2 ML VIAL IM ONE (20:55)
[2021-02-18 21:12] LABS: BASOPHILS % (AUTO) 0.1 % (0.0-2.0); EOSINOPHILS # (AUTO) 0.1 K/uL (0-0.4); EOSINOPHILS % (AUTO) 1.4 % (0.0-4.0); HEMOGLOBIN 9.5 g/dL (12.0-16.0); LYMPHOCYTES # (AUTO) 1.5 K/uL (2.5-16.5); LYMPHOCYTES % (AUTO) 21.7 % (20.5-51.1); MEAN CORPUSCULAR HEMOGLOBIN 23 pg (27-31); MEAN CORPUSCULAR HGB CONC 32 g/dL (33-37); MEAN CORPUSCULAR VOLUME 71.5 fL (80-94); MONOCYTES # (AUTO) 0.5 K/uL (0.8-1.0); MONOCYTES % (AUTO) 6.8 % (1.7-9.3); NEUTROPHILS # (AUTO) 4.9 K/uL (1.8-7.7); PLATELET COUNT (AUTO) 351 K/uL (140-450); RED BLOOD CELL COUNT(AUTO) 4.19 MIL/uL (4.20-5.40); RED CELL DISTRIBUTION WIDTH 18.9 % (11.6-13.7)
[2021-02-18 21:13] LABS: APPEARANCE,URINE CLEAR (CLEAR); BILIRUBIN,URINE NEGATIVE (NEGATIVE); BLOOD, URINE NEGATIVE (NEGATIVE); COLOR,URINE YELLOW (YELLOW); LEUKOCYTE ESTERASE ,URINE TRACE (NEGATIVE); NITRITE, URINE NEGATIVE (NEGATIVE); UGLUCOSE NEGATIVE (NEGATIVE)
[2021-02-18 21:24] LABS: ANION GAP 12.2 (8-16); CARBON DIOXIDE 27.2 mmol/L (21-32); CREATININE 0.7 mg/dL (0.6-1.3); POTASSIUM 3.4 mmol/L (3.5-5.1)
[2021-02-18 21:24] LABS: RBC,URINE 0-5 /HPF (0-5)
--- NOTE | 2021-02-18 21:33 | NUR ---
PT AMBULATORY TO BED #9
--- NOTE | 2021-02-18 21:45 | NUR ---
SEE COMPLETE ASSESSMENT
[2021-02-18 21:47] LABS: ALBUMIN 3.2 g/dL (3.4-5.0); BILIRUBIN,DIRECT 0.1 mg/dL (0.0-0.3); TOTAL BILIRUBIN 0.2 mg/dL (0.0-1.0)
--- NOTE | 2021-02-18 21:50 | NUR ---
patient to the bathroom for urine collection
[2021-02-18] MEDS ORDERED: cephALEXin 500 MG CAP PO ONE (22:00)
[2021-02-18] MEDS ORDERED: NAPR-54 PO (22:48)
[2021-02-18] MEDS ORDERED: CEPH-588 PO (22:48)
--- NOTE | 2021-02-18 23:11 | NUR ---
Patient discharged with v/s stable. Written and verbal after care instructions given and explained. Patient alert, oriented and verbalized understanding of instructions. Ambulatory with steady gait. All questions addressed prior to discharge. ID band removed. Patient advised to follow up with PMD. Rx of KEFLEX, AND NAPROSYN given. Patient educated on indication of medication including possible reaction and side effects. Opportunity to ask questions provided and answered.
[2021-02-18 23:12] VITALS: BP 132/87
== END 2021-02-18 23:11 | disposition home or self-care (01) ==
LOC: MED 20:00
DX: N39.0 Urinary tract infection, site not specified (principal)
CPT/HCPCS: 36415; 74176; 80048; 80076; 81001; 81025; 85025; 87086; 96372; 99284; J1885

== ENCOUNTER 2021-10-18 20:45 | Emergency (ER) | payer MEDICAID ==
[~2021-10-18] VITALS: Ht 157.5 cm; Wt 81.6 kg
[~2021-10-18 20:45] MED LIST changes: +CEPH-588 PO; -IBUP-2213 PO; +NAPR-54 PO
[2021-10-18 21:03] VITALS: BP 124/68
[2021-10-18] MEDS: GABAPENTIN 300 MG CAP PO ONE (21:44)
[2021-10-18] MEDS: KETOROLAC 30 MG/ML VIAL IM ONE (21:46)
[2021-10-18] MEDS ORDERED: IBUP-2218 PO (22:25)
[2021-10-18] MEDS ORDERED: GABA300C PO (22:25)
[2021-10-18 23:01] VITALS: BP 124/68
== END 2021-10-18 23:00 | disposition home or self-care (01) ==
LOC: MED 20:45
DX: M54.50 Low back pain, unspecified (principal); G89.29 Other chronic pain; Z79.899 Other long term (current) drug therapy; Z79.2 Long term (current) use of antibiotics; Z79.1 Long term (current) use of non-steroidal anti-inflammatories (NSAID)
CPT/HCPCS: 72110; 96372; 99283; J1885

== ENCOUNTER 2022-01-22 18:25 | Emergency (ER) | payer MEDICAID ==
[~2022-01-22] VITALS: Ht 144.8 cm; Wt 74.4 kg
[~2022-01-22 18:25] MED LIST changes: +GABA300C PO; +IBUP-2218 PO
--- NOTE | 2022-01-22 18:30 | NUR ---
PT WHEELCHAIR TO BATHROOM BY STAFF. PT IN GOWN ASSISTED TO BED FROM WHEELCHAIR
[2022-01-22 18:45] VITALS: BP 148/82
--- NOTE | 2022-01-22 18:56 | NUR ---
46YR OLD FEMALE BIB EMS C/O VAG BLEED X TODAY. PAIN LEVEL 10/10. LOW ABD PAIN TO RLQ PAIN. PT IS A&OX4 MOZAMBICAN SPEAKING . PT STATES SHE WENT TO THE BATHROOM AND A "GUSH OF BLOOD CAME OUT." SKIN IS WARM AND DRY. ON GENERAL OPERATOR. HOB ELEVATED SIDE RAILS UP X2 BED AT LOWEST POSITION.
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
--- NOTE | 2022-01-22 19:30 | NUR ---
Dr. Masters examining patient.
[2022-01-22] MEDS ORDERED: KETOROLAC 30 MG/ML VIAL IVP ONE (19:35)
[2022-01-22] MEDS ORDERED: MEDR10TA PO (20:06)
[2022-01-22] MEDS ORDERED: CIPR500T4 PO (20:06)
[2022-01-22] MEDS ORDERED: ONDA8TAB87 PO (20:06)
[2022-01-22] MEDS ORDERED: IBUP-2213 PO (20:06)
--- NOTE | 2022-01-22 20:11 | NUR ---
Patient called her family for a ride.
[2022-01-22 20:17] VITALS: BP 118/64
--- NOTE | 2022-01-22 20:17 | NUR ---
Patient discharged with v/s stable. Written and verbal after care instructions given and explained. Patient alert, oriented and verbalized understanding of instructions. Ambulatory with steady gait. All questions addressed prior to discharge. ID band removed. Patient advised to follow up with PMD. Rx of Ciprofloxacin,Ibuprofen, Provera and Zofran given. Patient educated on indication of medication including possible reaction and side effects. Opportunity to ask questions provided and answered.
== END 2022-01-22 20:17 | disposition home or self-care (01) ==
LOC: MED 18:25
DX: N93.8 Other specified abnormal uterine and vaginal bleeding (principal); N39.0 Urinary tract infection, site not specified; Z79.899 Other long term (current) drug therapy; Z98.890 Other specified postprocedural states; Z90.710 Acquired absence of both cervix and uterus
CPT/HCPCS: 81002; 81025; 96374; 99283; J1885

== ENCOUNTER 2022-04-11 21:25 | Emergency (ER) | payer MEDICAID ==
[~2022-04-11] VITALS: Ht 149.9 cm; Wt 77.6 kg
[~2022-04-11 21:25] MED LIST changes: +CIPR500T4 PO; +IBUP-2213 PO; +MEDR10TA PO; +ONDA8TAB87 PO
[2022-04-11 21:30] VITALS: BP 122/77
--- NOTE | 2022-04-11 21:33 | NUR ---
to lobby a/w bed ambulatory
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
== END 2022-04-11 22:55 | disposition left against medical advice (07) ==
LOC: MED 21:25
DX: L29.9 Pruritus, unspecified (principal); Z53.21 Procedure and treatment not carried out due to patient leaving prior to being seen by health care provider

== ENCOUNTER 2022-04-24 21:06 | Emergency (ER) | payer MEDICAID, OTHER ==
[~2022-04-24] VITALS: Ht 142.2 cm; Wt 71.7 kg
[2022-04-24 22:29] VITALS: BP 134/81
--- NOTE | 2022-04-24 22:34 | NUR ---
PT TRIAGED AND VSS, PT SENT TO LOBBY.
--- NOTE | 2022-04-24 22:47 | NUR ---
PT TAKEN TO BED 3
--- NOTE | 2022-04-24 22:51 | NUR ---
PT AMBULATED TO ED 3, REPORT GIVEN TO QUINTEN SIMON
--- NOTE | 2022-04-24 23:19 | NUR ---
Dr. Lugo examining patient.
[2022-04-24] MEDS ORDERED: diphenhydrAMINE 50 MG/ML VIAL IVP ONE (23:30)
[2022-04-24] MEDS ORDERED: KETOROLAC 30 MG/ML VIAL IVP ONE (23:30)
--- NOTE | 2022-04-24 23:39 | NUR ---
LAB AT BEDSIDE FOR BLOOD DRAW. INFLUENZA AND ELVIN SWAB. SENT TO LAB AT THIS TIME.
[2022-04-24 23:46] LABS: BASOPHILS % (AUTO) 0.3 % (0.0-2.0); EOSINOPHILS # (AUTO) 0.2 K/uL (0-0.4); EOSINOPHILS % (AUTO) 3.3 % (0.0-4.0); HEMATOCRIT 35.6 % (36-48); HEMOGLOBIN 12.1 g/dL (12.0-16.0); LYMPHOCYTES # (AUTO) 1.1 K/uL (2.5-16.5); LYMPHOCYTES % (AUTO) 17.8 % (20.5-51.1); MEAN CORPUSCULAR HEMOGLOBIN 29 pg (27-31); MEAN CORPUSCULAR HGB CONC 34 g/dL (33-37); MEAN CORPUSCULAR VOLUME 86.3 fL (80-94); MONOCYTES # (AUTO) 0.5 K/uL (0.8-1.0); MONOCYTES % (AUTO) 7.3 % (1.7-9.3); NEUTROPHILS # (AUTO) 4.6 K/uL (1.8-7.7); NEUTROPHILS % (AUTO) 71.3 % (42.2-75.2); PLATELET COUNT (AUTO) 239 K/uL (140-450); RED BLOOD CELL COUNT(AUTO) 4.12 MIL/uL (4.20-5.40); RED CELL DISTRIBUTION WIDTH 19.3 % (11.6-13.7); WHITE BLOOD COUNT (AUTO) 6.4 K/uL (4.8-10.8)
[2022-04-25 00:19] LABS: PROTHROMBIN TIME 9.8 secs (10.8-13.4)
[2022-04-25 00:23] LABS: ALBUMIN 3.2 g/dL (3.4-5.0); ANION GAP 15.1 (8-16); CARBON DIOXIDE 25.7 mmol/L (21-32); CREATININE 0.6 mg/dL (0.6-1.3); PHOSPHORUS 4.2 mg/dL (2.5-4.9); POTASSIUM 3.8 mmol/L (3.5-5.1); TOTAL BILIRUBIN 0.3 mg/dL (0.0-1.0)
--- NOTE | 2022-04-25 00:52 | NUR ---
PT TAKEN TO CT
[2022-04-25 00:56] LABS: APPEARANCE,URINE CLOUDY (CLEAR); BILIRUBIN,URINE NEGATIVE (NEGATIVE); BLOOD, URINE 3+ (NEGATIVE); COLOR,URINE RED (YELLOW); LEUKOCYTE ESTERASE ,URINE TRACE (NEGATIVE); NITRITE, URINE NEGATIVE (NEGATIVE); UGLUCOSE NEGATIVE (NEGATIVE)
[2022-04-25 00:59] LABS: RBC,URINE TOO NUMEROUS TO COUN /HPF (0-5)
[2022-04-25] MEDS ORDERED: IBUP-2213 PO (03:15)
[2022-04-25] MEDS ORDERED: ATA25 PO (03:15)
[2022-04-25] MEDS ORDERED: CEPH-588 PO (03:15)
[2022-04-25 03:23] VITALS: BP 137/80
--- NOTE | 2022-04-25 03:24 | NUR ---
Patient discharged with v/s stable. Written and verbal after care instructions given and explained. Patient alert, oriented and verbalized understanding of instructions. Ambulatory with steady gait. All questions addressed prior to discharge. ID band removed. Patient advised to follow up with PMD. Rx SENT TO PHARMACY. Patient educated on indication of medication including possible reaction and side effects. Opportunity to ask questions provided and answered.
[2022-04-25] MEDS ORDERED: HYDR-5191 PO (21:46)
== END 2022-04-25 03:24 | disposition home or self-care (01) ==
LOC: MED 21:10
DX: N39.0 Urinary tract infection, site not specified (principal); Z20.822 Contact with and (suspected) exposure to COVID-19
CPT/HCPCS: 36415; 71275; 74174; 80053; 81001; 81025; 83690; 83735; 84100; 85025; 85379; 85384; 85610; 85730; 87086; 87426; 87804; 96374; 96375; 99285; J1200; J1885; Q9967

== ENCOUNTER 2022-04-25 19:06 | Emergency (ER) | payer OTHER ==
[~2022-04-25] VITALS: Ht 134.6 cm; Wt 71.7 kg
[~2022-04-25 19:06] MED LIST changes: +ATA25 PO
[2022-04-25 19:13] VITALS: BP 165/97
--- NOTE | 2022-04-25 19:20 | NUR ---
BIBA BLS TO ER BED 3
--- NOTE | 2022-04-25 19:37 | NUR ---
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 PT STATES SHE DIAGNOSED WITH A UTI AND JUST BEGAN TO TAKE HER PRESCRIBED ANTIBIOTIC TODAY WITH NO RELIEF. 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 SHERI
[2022-04-25] MEDS ORDERED: KETOROLAC 30 MG/ML VIAL IM ONE (19:45)
--- NOTE | 2022-04-25 19:58 | NUR ---
PT MEDICATED AND US AT BEDSIDE.
[2022-04-25] MEDS ORDERED: HYDR-5191 PO (21:46)
[2022-04-25 22:20] VITALS: BP 110/58
== END 2022-04-25 22:20 | disposition home or self-care (01) ==
LOC: MED 19:06
DX: N83.202 Unspecified ovarian cyst, left side (principal); G89.29 Other chronic pain
CPT/HCPCS: 76856; 96372; 99284; J1885; Q0092

== ENCOUNTER 2022-05-10 19:03 | Emergency (ER) | payer OTHER ==
[~2022-05-10] VITALS: Ht 304.8 cm; Wt 74.8 kg
[~2022-05-10 19:03] MED LIST changes: +HYDR-5191 PO
[2022-05-10 19:24] VITALS: BP 137/75
--- NOTE | 2022-05-10 19:29 | NUR ---
TO LOBBY FOLLOWING TRIAGE
[2022-05-10] MEDS ORDERED: METOCLOPRAMIDE 10 MG TAB PO ONE (21:05)
[2022-05-10] MEDS ORDERED: KETOROLAC 60 MG/2 ML VIAL IM ONE (21:05)
[2022-05-10 21:12] LABS: BASOPHILS % (AUTO) 0.1 % (0.0-2.0); EOSINOPHILS % (AUTO) 0.1 % (0.0-4.0); HEMATOCRIT 36.5 % (36-48); HEMOGLOBIN 12.2 g/dL (12.0-16.0); LYMPHOCYTES # (AUTO) 1.1 K/uL (2.5-16.5); LYMPHOCYTES % (AUTO) 8.5 % (20.5-51.1); MEAN CORPUSCULAR HEMOGLOBIN 29 pg (27-31); MEAN CORPUSCULAR HGB CONC 34 g/dL (33-37); MEAN CORPUSCULAR VOLUME 86.6 fL (80-94); MONOCYTES # (AUTO) 0.8 K/uL (0.8-1.0); MONOCYTES % (AUTO) 5.9 % (1.7-9.3); NEUTROPHILS # (AUTO) 11.2 K/uL (1.8-7.7); NEUTROPHILS % (AUTO) 85.4 % (42.2-75.2); PLATELET COUNT (AUTO) 293 K/uL (140-450); RED BLOOD CELL COUNT(AUTO) 4.22 MIL/uL (4.20-5.40); RED CELL DISTRIBUTION WIDTH 17.5 % (11.6-13.7); WHITE BLOOD COUNT (AUTO) 13.1 K/uL (4.8-10.8)
[2022-05-10 21:36] LABS: ALBUMIN 3.3 g/dL (3.4-5.0); CARBON DIOXIDE 27.6 mmol/L (21-32); CREATININE 0.7 mg/dL (0.6-1.3); POTASSIUM 3.6 mmol/L (3.5-5.1); TOTAL BILIRUBIN 0.1 mg/dL (0.0-1.0)
--- NOTE | 2022-05-10 22:19 | NUR ---
PT TO BED #3
--- NOTE | 2022-05-10 22:45 | NUR ---
pt is french speaker, came in with latosha. he said her pain is 8/10. follow command.
[2022-05-10 22:56] LABS: APPEARANCE,URINE HAZY (CLEAR); BILIRUBIN,URINE NEGATIVE (NEGATIVE); BLOOD, URINE 2+ (NEGATIVE); COLOR,URINE YELLOW (YELLOW); LEUKOCYTE ESTERASE ,URINE TRACE (NEGATIVE); NITRITE, URINE NEGATIVE (NEGATIVE); UGLUCOSE NEGATIVE (NEGATIVE)
[2022-05-10 23:16] LABS: RBC,URINE 0-5 /HPF (0-5); WBC,URINE 0-5 /HPF (0-5)
[2022-05-10 23:17] LABS: CALCIUM OXALATE CRYSTALS,UR 0-10 /HPF (None Seen); URINE AMORPHOUS URATE 1+ /HPF (None Seen)
[2022-05-11] MEDS ORDERED: cephALEXin 500 MG CAP PO ONE (00:15)
[2022-05-11] MEDS ORDERED: NITR100C7 PO (00:44)
[2022-05-11 00:58] VITALS: BP 122/67
--- NOTE | 2022-05-11 01:00 | NUR ---
Patient discharged with v/s stable. Written and verbal after care instructions given and explained. Patient alert, oriented and verbalized understanding of instructions. Ambulatory with steady gait. All questions addressed prior to discharge. ID band removed. Patient advised to follow up with PMD. Rx of medication given. Patient educated on indication of medication including possible reaction and side effects. Opportunity to ask questions provided and answered.
== END 2022-05-11 01:00 | disposition home or self-care (01) ==
LOC: MED 19:03
DX: N39.0 Urinary tract infection, site not specified (principal); R51.9 Headache, unspecified; Z79.2 Long term (current) use of antibiotics; Z79.891 Long term (current) use of opiate analgesic; Z79.899 Other long term (current) drug therapy; Z79.1 Long term (current) use of non-steroidal anti-inflammatories (NSAID)
CPT/HCPCS: 36415; 70450; 80053; 81001; 85025; 96372; 99284; J1885; J8597

== ENCOUNTER 2022-06-06 06:41 | Day surgery (SDC) | payer OTHER ==
[~2022-06-06] VITALS: Ht 147.3 cm; Wt 70.8 kg
[~2022-06-06 06:41] MED LIST changes: +NITR100C7 PO
[2022-06-06] MEDS ORDERED: fentaNYL citrate 0.05 MG/ML VIAL ONE (07:34)
[2022-06-06] MEDS ORDERED: LIDOCAINE 2% 100 MG/5 ML UJET TP ONE (07:34)
[2022-06-06] MEDS ORDERED: fentaNYL citrate 0.05 MG/ML VIAL IVP ONE (09:10)
== END 2022-06-06 09:35 | disposition home or self-care (01) ==
LOC: MDS 06:41 → MMU 06:42 → MDS 09:35
PROVIDERS: ATTEND Internal Medicine Gastroenterology
DX: Z12.11 Encounter for screening for malignant neoplasm of colon (principal); K57.30 Diverticulosis of large intestine without perforation or abscess without bleeding; K76.0 Fatty (change of) liver, not elsewhere classified; R10.30 Lower abdominal pain, unspecified; Z20.822 Contact with and (suspected) exposure to COVID-19; Z79.899 Other long term (current) drug therapy
CPT/HCPCS: 45378; 87426; J3010

== ENCOUNTER 2022-09-02 05:25 | Emergency (ER) | payer OTHER ==
[~2022-09-02] VITALS: Ht 129.5 cm; Wt 68.0 kg
--- NOTE | 2022-09-02 05:28 | NUR ---
PT PORTER GEES. TAKEN TO BED 4
[2022-09-02 05:39] VITALS: BP 130/88
[2022-09-02 05:56] LABS: BASOPHILS % (AUTO) 0.1 % (0.0-2.0); EOSINOPHILS # (AUTO) 0.1 K/uL (0-0.4); EOSINOPHILS % (AUTO) 1.6 % (0.0-4.0); HEMATOCRIT 36.4 % (36-48); HEMOGLOBIN 12.2 g/dL (12.0-16.0); LYMPHOCYTES # (AUTO) 1.3 K/uL (2.5-16.5); LYMPHOCYTES % (AUTO) 18.4 % (20.5-51.1); MEAN CORPUSCULAR HEMOGLOBIN 30 pg (27-31); MEAN CORPUSCULAR HGB CONC 34 g/dL (33-37); MEAN CORPUSCULAR VOLUME 89.5 fL (80-94); MONOCYTES # (AUTO) 0.4 K/uL (0.8-1.0); NEUTROPHILS % (AUTO) 73.9 % (42.2-75.2); PLATELET COUNT (AUTO) 236 K/uL (140-450); RED BLOOD CELL COUNT(AUTO) 4.07 MIL/uL (4.20-5.40); RED CELL DISTRIBUTION WIDTH 14.8 % (11.6-13.7); WHITE BLOOD COUNT (AUTO) 6.8 K/uL (4.8-10.8)
--- NOTE | 2022-09-02 05:59 | NUR ---
Patient received on bed lying comfortably and awake. Alert and oriented x4. No acute distress. No Complained of abdominal pain with pain scale of 10/10. Respirations even and unlabored.
[2022-09-02 06:06] LABS: APPEARANCE,URINE HAZY (CLEAR); BILIRUBIN,URINE NEGATIVE (NEGATIVE); BLOOD, URINE TRACE-I (NEGATIVE); COLOR,URINE YELLOW (YELLOW); LEUKOCYTE ESTERASE ,URINE NEGATIVE (NEGATIVE); NITRITE, URINE NEGATIVE (NEGATIVE); PH,URINE 6.5 (5.0-9.0); UGLUCOSE NEGATIVE (NEGATIVE)
--- NOTE | 2022-09-02 06:17 | NUR ---
Dr. Jara examining patient.
[2022-09-02] MEDS ORDERED: DIPHENOXYLATE /ATROPINE 2.5 MG TAB PO ONE (06:20)
[2022-09-02] MEDS ORDERED: FAMOTIDINE 20 MG/2 ML VIAL IVP ONE (06:20)
[2022-09-02] MEDS ORDERED: NACL 0.9% 1,000 ML IV ONE (06:20)
[2022-09-02 06:42] LABS: ALBUMIN 3.8 g/dL (3.4-5.0); ANION GAP 10.8 (8-16); CREATININE 0.7 mg/dL (0.6-1.3); POTASSIUM 3.8 mmol/L (3.5-5.1); TOTAL BILIRUBIN 0.4 mg/dL (0.0-1.0)
[2022-09-02] MEDS ORDERED: ATRO1TAB PO (07:20)
[2022-09-02] MEDS ORDERED: ONDA-188 PO (07:20)
[2022-09-02 07:29] VITALS: BP 115/76
--- NOTE | 2022-09-02 07:29 | NUR ---
Patient discharged with v/s stable. Written and verbal after care instructions given and explained. Patient alert, oriented and verbalized understanding of instructions. Ambulatory with steady gait. All questions addressed prior to discharge. ID band removed. Patient advised to follow up with PMD. Rx of Lomotil and Zofran given. Patient educated on indication of medication including possible reaction and side effects. Opportunity to ask questions provided and answered.
== END 2022-09-02 07:29 | disposition home or self-care (01) ==
LOC: MED 05:25
DX: R11.2 Nausea with vomiting, unspecified (principal); R19.7 Diarrhea, unspecified; Z79.899 Other long term (current) drug therapy; Z79.2 Long term (current) use of antibiotics; Z79.1 Long term (current) use of non-steroidal anti-inflammatories (NSAID); Z79.891 Long term (current) use of opiate analgesic
CPT/HCPCS: 36415; 80053; 81003; 81025; 83690; 85025; 96361; 96374; 99283; J3490; J7030

== ENCOUNTER 2023-01-30 14:10 | Emergency (ER) | payer OTHER ==
[~2023-01-30] VITALS: Ht 142.2 cm; Wt 69.9 kg
[~2023-01-30 14:10] MED LIST changes: +ATRO1TAB PO; +ONDA-188 PO
[2023-01-30 14:14] VITALS: BP 129/98; PULSE 89; RESP 15; TEMP 98.1; O2SAT 97
[2023-01-30 15:05] LABS: EOSINOPHILS # (AUTO) 0.1 K/uL (0-0.4); EOSINOPHILS % (AUTO) 0.6 % (0.0-4.0); HEMATOCRIT 38.6 % (36-48); LYMPHOCYTES # (AUTO) 0.3 K/uL (2.5-16.5); MEAN CORPUSCULAR HEMOGLOBIN 30 pg (27-31); MEAN CORPUSCULAR HGB CONC 34 g/dL (33-37); MEAN CORPUSCULAR VOLUME 88.7 fL (80-94); MONOCYTES # (AUTO) 0.5 K/uL (0.8-1.0); MONOCYTES % (AUTO) 4.7 % (1.7-9.3); NEUTROPHILS # (AUTO) 10.5 K/uL (1.8-7.7); NEUTROPHILS % (AUTO) 91.7 % (42.2-75.2); PLATELET COUNT (AUTO) 231 K/uL (140-450); RED BLOOD CELL COUNT(AUTO) 4.35 MIL/uL (4.20-5.40); RED CELL DISTRIBUTION WIDTH 14.8 % (11.6-13.7); WHITE BLOOD COUNT (AUTO) 11.5 K/uL (4.8-10.8)
[2023-01-30] MEDS ORDERED: NACL 0.9% 1,000 ML IV ONE (15:10)
[2023-01-30] MEDS ORDERED: ALUMINUM HYD/MAG/SIMETHICONE 30 ML UDC PO ONE (15:10)
[2023-01-30] MEDS ORDERED: FAMOTIDINE 20 MG TAB PO ONE (15:10)
[2023-01-30] MEDS ORDERED: DICYCLOMINE HCL LIQUID 10 MG/5 ML UDC PO ONE (15:10)
[2023-01-30] MEDS ORDERED: ACETAMINOPHEN EXTRA STRENGTH 500 MG TAB PO ONE (15:10)
[2023-01-30 15:23] LABS: ALBUMIN 3.9 g/dL (3.4-5.0); CALCIUM 8.6 mg/dL (8.5-10.1); CREATININE 0.6 mg/dL (0.6-1.3); TOTAL BILIRUBIN 0.4 mg/dL (0.0-1.0)
[2023-01-30] MEDS ORDERED: FAMO-90 PO (17:07)
[2023-01-30] MEDS ORDERED: ACET-10509 PO (17:07)
[2023-01-30] MEDS ORDERED: ONDA-188 PO (17:07)
[2023-01-30 17:19] VITALS: BP 112/65; PULSE 67; RESP 20; TEMP 98.4; O2SAT 98
[2023-01-30 17:27] LABS: APPEARANCE,URINE CLEAR (CLEAR); BILIRUBIN,URINE NEGATIVE (NEGATIVE); BLOOD, URINE NEGATIVE (NEGATIVE); COLOR,URINE YELLOW (YELLOW); LEUKOCYTE ESTERASE ,URINE NEGATIVE (NEGATIVE); NITRITE, URINE NEGATIVE (NEGATIVE); PROTEIN,URINE NEGATIVE (NEGATIVE); UGLUCOSE NEGATIVE (NEGATIVE); UROBILINOGEN,URINE 0.2 EU/dL (0.2 - 1)
== END 2023-01-30 17:18 | disposition home or self-care (01) ==
LOC: MED 14:10
DX: A08.4 Viral intestinal infection, unspecified (principal); R11.2 Nausea with vomiting, unspecified; R51.9 Headache, unspecified; Z90.49 Acquired absence of other specified parts of digestive tract; Z79.899 Other long term (current) drug therapy
CPT/HCPCS: 36415; 80053; 81003; 81025; 83690; 85025; 96360; 99283; J7030

== ENCOUNTER 2023-02-08 15:45 | Inpatient (IN) | payer OTHER ==
[~2023-02-08] VITALS: Ht 129.5 cm; Wt 68.9 kg
[~2023-02-08 15:45] MED LIST changes: +ACET-10509 PO; +FAMO-90 PO
[2023-02-08 16:08] VITALS: BP 122/76; PULSE 118; RESP 22; TEMP 100.9; O2SAT 98
[2023-02-08 16:32] LABS: FLU A ANTIGEN negative (NEGATIVE); FLU B ANTIGEN NEGATIVE (NEGATIVE)
[2023-02-08] MEDS ORDERED: MORPHINE SULFATE 4 MG/ML SYR IVP ONE ×2 (16:35→22:35)
[2023-02-08] MEDS ORDERED: ONDANSETRON 4 MG/2 ML VIAL IVP ONE (16:35)
[2023-02-08] MEDS ORDERED: NACL 0.9% 1,000 ML IV ONE ×2 (16:35→21:45)
[2023-02-08] MEDS ORDERED: ACETAMINOPHEN 325 MG TAB PO ONE (16:35)
[2023-02-08 17:09] LABS: BASOPHILS % (AUTO) 0.1 % (0.0-2.0); EOSINOPHILS % (AUTO) 0.2 % (0.0-4.0); HEMATOCRIT 36.5 % (36-48); HEMOGLOBIN 12.5 g/dL (12.0-16.0); LYMPHOCYTES # (AUTO) 0.5 K/uL (2.5-16.5); LYMPHOCYTES % (AUTO) 5.4 % (20.5-51.1); MEAN CORPUSCULAR HEMOGLOBIN 30 pg (27-31); MEAN CORPUSCULAR HGB CONC 34 g/dL (33-37); MEAN CORPUSCULAR VOLUME 87.3 fL (80-94); MONOCYTES # (AUTO) 0.4 K/uL (0.8-1.0); MONOCYTES % (AUTO) 4.2 % (1.7-9.3); NEUTROPHILS % (AUTO) 90.1 % (42.2-75.2); PLATELET COUNT (AUTO) 224 K/uL (140-450); RED BLOOD CELL COUNT(AUTO) 4.18 MIL/uL (4.20-5.40); RED CELL DISTRIBUTION WIDTH 14.7 % (11.6-13.7); WHITE BLOOD COUNT (AUTO) 8.9 K/uL (4.8-10.8)
[2023-02-08 17:20] LABS: INR 0.97 (0.8-1.2); PROTHROMBIN TIME 10.2 secs (10.8-13.4)
[2023-02-08 17:26] LABS: ALANINE AMINOTRANSFERASE 28 U/L (12-78); ALBUMIN 3.5 g/dL (3.4-5.0); ALKALINE PHOSPHATASE 158 U/L (50-136); ANION GAP 17.9 (8-16); ASPARTATE AMINOTRANSFERASE 26 U/L (15-37); CALCIUM 8.8 mg/dL (8.5-10.1); CARBON DIOXIDE 19.1 mmol/L (21-32); CHLORIDE 104 mmol/L (98-107); CREATININE 0.7 mg/dL (0.6-1.3); GFR ARICAN-AMERICAN 115 mL/min (>90); GFR NON ARICAN-AMERICAN 95 mL/min (>90); GLUCOSE 107 mg/dL (74-106); LIPASE 102 U/L (73-393); MAGNESIUM 1.5 mg/dL (1.8-2.4); PHOSPHORUS 1.7 mg/dL (2.5-4.9); SODIUM SERUM 138 mmol/L (136-145); TOTAL BILIRUBIN 0.4 mg/dL (0.0-1.0); TOTAL PROTEIN, SERUM 7.9 g/dL (6.4-8.2); UREA NITROGEN, BLOOD 15 mg/dL (7-18)
[2023-02-08 17:35] LABS: LACTIC ACID 2.1 mmol/L (0.4-2.0)
[2023-02-08] MEDS ORDERED: POTASSIUM CHLORIDE 10 MEQ TABER PO ONE (18:00)
[2023-02-08] MEDS ORDERED: MAGNESIUM CHLORIDE 64 MG TABEC PO SCH (18:00)
[2023-02-08] MEDS ORDERED: ONDA-188 SL (18:07)
[2023-02-08] MEDS ORDERED: BEN10 PO (18:07)
[2023-02-08] MEDS ORDERED: MAGNESIUM CHLORIDE 64 MG TABEC PO ONE (18:55)
[2023-02-08] MEDS ORDERED: MAG SULF 2000 MG/WATER PREMIX 50 ML IV ONE (19:05)
[2023-02-08 21:00] LABS: BILIRUBIN,URINE NEGATIVE (NEGATIVE); BLOOD, URINE TRACE-I (NEGATIVE); LEUKOCYTE ESTERASE ,URINE NEGATIVE (NEGATIVE); NITRITE, URINE NEGATIVE (NEGATIVE); PH,URINE 5.5 (5.0-9.0); PROTEIN,URINE NEGATIVE (NEGATIVE); UGLUCOSE NEGATIVE (NEGATIVE); UROBILINOGEN,URINE 0.2 EU/dL (0.2 - 1)
[2023-02-08 21:02] LABS: APPEARANCE,URINE CLEAR (CLEAR); COLOR,URINE YELLOW (YELLOW)
[2023-02-08 21:24] LABS: BACTERIA,URINE FEW /HPF (None Seen); RBC,URINE 0-5 /HPF (0-5); SQUAMOUS EPITHELIAL CELL,UR 0-3 (FEW) /LPF (0-3 (FEW)); WBC,URINE NONE SEEN /HPF (0-5)
[2023-02-08] MEDS ORDERED: PIPERACILLIN/TAZOBACTAM 3.375 GM in DEXTROSE 5% 50 ML IV ONE (21:45)
[2023-02-08] MEDS ORDERED: PIPERACILLIN/TAZOBACTAM 3.375 GM VIAL IV ONE (21:49)
[2023-02-08 23:17] LABS: LACTIC ACID 0.6 mmol/L (0.4-2.0)
[2023-02-09] MEDS ORDERED: LORazepam 2 MG/ML VIAL IVP PRN (01:45)
[2023-02-09] MEDS ORDERED: ONDANSETRON 4 MG/2 ML VIAL IVP PRN (01:45)
[2023-02-09] MEDS: NACL 0.9% 1,000 ML IV SCH ×3 (03:28→17:45)
[2023-02-09] MEDS: ACETAMINOPHEN 325 MG TAB PO PRN (04:45)
[2023-02-09 08:39] VITALS: O2SAT 99
[2023-02-09 11:30] VITALS: BP 106/59; PULSE 88; RESP 16; TEMP 98.7; O2SAT 98; O2SAT 99
[2023-02-09 16:00] VITALS: BP 177/100; PULSE 106; RESP 20; TEMP 98.8; O2SAT 95
[2023-02-09] MEDS: MORPHINE SULFATE 2 MG/ML SYR IVP PRN (16:07)
[2023-02-09 20:00] VITALS: BP 102/56; PULSE 82; RESP 18; TEMP 98.8; O2SAT 96
[2023-02-10] MEDS: NACL 0.9% 1,000 ML IV SCH ×2 (01:38→09:45)
[2023-02-10] MEDS: ACETAMINOPHEN 325 MG TAB PO PRN (01:56)
[2023-02-10 04:00] VITALS: BP 98/55; PULSE 67; RESP 18; TEMP 97.1; O2SAT 99
[2023-02-10 07:22] LABS: BASOPHILS % (AUTO) 0.1 % (0.0-2.0); EOSINOPHILS # (AUTO) 0.1 K/uL (0-0.4); EOSINOPHILS % (AUTO) 2.1 % (0.0-4.0); HEMOGLOBIN 10.5 g/dL (12.0-16.0); LYMPHOCYTES % (AUTO) 17.6 % (20.5-51.1); MEAN CORPUSCULAR HEMOGLOBIN 30 pg (27-31); MEAN CORPUSCULAR HGB CONC 34 g/dL (33-37); MEAN CORPUSCULAR VOLUME 88.6 fL (80-94); MONOCYTES # (AUTO) 0.6 K/uL (0.8-1.0); MONOCYTES % (AUTO) 10.7 % (1.7-9.3); NEUTROPHILS # (AUTO) 4.1 K/uL (1.8-7.7); NEUTROPHILS % (AUTO) 69.5 % (42.2-75.2); PLATELET COUNT (AUTO) 196 K/uL (140-450); RED CELL DISTRIBUTION WIDTH 14.5 % (11.6-13.7); WHITE BLOOD COUNT (AUTO) 5.9 K/uL (4.8-10.8)
[2023-02-10 07:34] LABS: C-REACTIVE PROTEIN QUANT 19.8 mg/dL (0.0-0.9)
[2023-02-10 07:40] LABS: ALBUMIN 2.5 g/dL (3.4-5.0); ANION GAP 13.1 (8-16); CALCIUM 7.7 mg/dL (8.5-10.1); CARBON DIOXIDE 22.2 mmol/L (21-32); CREATININE 0.6 mg/dL (0.6-1.3); MAGNESIUM 1.8 mg/dL (1.8-2.4); POTASSIUM 3.3 mmol/L (3.5-5.1); TOTAL BILIRUBIN 0.2 mg/dL (0.0-1.0); TOTAL PROTEIN, SERUM 6.1 g/dL (6.4-8.2)
[2023-02-10 08:00] VITALS: BP 101/60; PULSE 58; RESP 17; RESP 18; TEMP 97; O2SAT 98
[2023-02-10] MEDS: MORPHINE SULFATE 2 MG/ML SYR IVP PRN (11:59)
[2023-02-10] MEDS ORDERED: HYDROcodone/APAP 5/325 MG 1 TAB TAB PO PRN (13:35)
[2023-02-10] MEDS ORDERED: IMO2 PO (14:17)
[2023-02-10] MEDS ORDERED: LOPERAMIDE 2 MG CAP PO PRN (14:20)
== END 2023-02-10 17:19 | disposition home or self-care (01) | DRG 249 ==
LOC: MED 15:45 → MTU 02-09 01:46 → OBSVTOIN 02-09 10:18
PROVIDERS: ADMIT Hospitalist; ATTEND Hospitalist
DX: A08.4 Viral intestinal infection, unspecified (principal); E83.39 Other disorders of phosphorus metabolism; R65.10 Systemic inflammatory response syndrome (SIRS) of non-infectious origin without acute organ dysfunction; K76.0 Fatty (change of) liver, not elsewhere classified; E86.0 Dehydration; I10 Essential (primary) hypertension; E83.42 Hypomagnesemia; E87.6 Hypokalemia; R74.01 Elevation of levels of liver transaminase levels; R73.03 Prediabetes
CPT/HCPCS: 36415; 71045; 76700; 80053; 81001; 83605; 83690; 83735; 83880; 84100; 84484; 85025; 85379; 85610; 85651; 86140; 86886; 86900; 86901; 87040; 87070; 87081; 87086; 87635-QW; 96361; 96374; 96375; 99291; J2270; J2405; J2543; J3475; J7030; Q0092; Q9967

== ENCOUNTER 2024-01-13 14:35 | Emergency (ER) | payer OTHER ==
[~2024-01-13] VITALS: Ht 143.5 cm; Wt 72.1 kg
[~2024-01-13 14:35] MED LIST changes: -ACET-10509 PO; -ATA25 PO; -ATRO1TAB PO; -CEPH-588 PO; -CIPR500T4 PO; -FAMO-90 PO; -HYDR-5191 PO; -IBUP-2218 PO; +IMO2 PO; -MEDR10TA PO; -METH-1681 PO; -NAPR-54 PO; -NITR100C7 PO; -ONDA-188 PO; -ONDA8TAB87 PO
[2024-01-13 14:42] VITALS: BP 127/80; PULSE 85; RESP 17; TEMP 97.3; O2SAT 100
[2024-01-13 16:07] LABS: BASOPHILS % (AUTO) 0.2 % (0.0-2.0); EOSINOPHILS # (AUTO) 0.1 K/uL (0-0.4); EOSINOPHILS % (AUTO) 1.5 % (0.0-4.0); HEMATOCRIT 37.5 % (36-48); HEMOGLOBIN 12.4 g/dL (12.0-16.0); LYMPHOCYTES % (AUTO) 17.5 % (20.5-51.1); MEAN CORPUSCULAR HEMOGLOBIN 30 pg (27-31); MEAN CORPUSCULAR HGB CONC 33 g/dL (33-37); MEAN CORPUSCULAR VOLUME 89.9 fL (80-94); MONOCYTES # (AUTO) 0.4 K/uL (0.8-1.0); MONOCYTES % (AUTO) 6.6 % (1.7-9.3); NEUTROPHILS # (AUTO) 4.2 K/uL (1.8-7.7); NEUTROPHILS % (AUTO) 74.2 % (42.2-75.2); PLATELET COUNT (AUTO) 242 K/uL (140-450); RED BLOOD CELL COUNT(AUTO) 4.17 MIL/uL (4.20-5.40); RED CELL DISTRIBUTION WIDTH 15.8 % (11.6-13.7); WHITE BLOOD COUNT (AUTO) 5.7 K/uL (4.8-10.8)
[2024-01-13 16:17] LABS: ANION GAP 12.9 (8-16); CALCIUM 9.3 mg/dL (8.5-10.1); CARBON DIOXIDE 26.2 mmol/L (21-32); CREATININE 0.7 mg/dL (0.6-1.3); POTASSIUM 4.1 mmol/L (3.5-5.1)
[2024-01-13 16:27] LABS: APPEARANCE,URINE CLEAR (CLEAR); BILIRUBIN,URINE NEGATIVE (NEGATIVE); BLOOD, URINE NEGATIVE (NEGATIVE); COLOR,URINE YELLOW (YELLOW); LEUKOCYTE ESTERASE ,URINE NEGATIVE (NEGATIVE); NITRITE, URINE NEGATIVE (NEGATIVE); PROTEIN,URINE NEGATIVE (NEGATIVE); UGLUCOSE NEGATIVE (NEGATIVE); UROBILINOGEN,URINE 0.2 EU/dL (0.2 - 1)
[2024-01-13 16:29] LABS: ALBUMIN 3.3 g/dL (3.4-5.0); BILIRUBIN,DIRECT 0.1 mg/dL (0.0-0.3); TOTAL BILIRUBIN 0.4 mg/dL (0.0-1.0); TOTAL PROTEIN, SERUM 7.8 g/dL (6.4-8.2)
[2024-01-13] MEDS: NACL 0.9% 1,000 ML IV ONE (17:01)
[2024-01-13] MEDS: ONDANSETRON 4 MG/2 ML VIAL IVP ONE (17:01)
[2024-01-13] MEDS: MORPHINE SULFATE 4 MG/ML SYR IVP ONE (17:02)
[2024-01-13] MEDS ORDERED: BEN10 PO (17:15)
[2024-01-13] MEDS ORDERED: IBUP-2213 PO (17:15)
[2024-01-13] MEDS: KETOROLAC 30 MG/ML VIAL IVP ONE (18:04)
[2024-01-13] MEDS: DICYCLOMINE 20 MG/2 ML VIAL IM ONE (18:04)
[2024-01-13] MEDS: methocarbamoL 500 MG TAB PO STA (20:22)
== END 2024-01-13 20:30 | disposition home or self-care (01) ==
LOC: MED 14:35
DX: R10.31 Right lower quadrant pain (principal); R30.0 Dysuria; R19.7 Diarrhea, unspecified; R51.9 Headache, unspecified; E11.9 Type 2 diabetes mellitus without complications; I10 Essential (primary) hypertension; Z79.899 Other long term (current) drug therapy; Z98.890 Other specified postprocedural states
CPT/HCPCS: 36415; 74176; 76856; 80048; 80076; 81003; 81025; 83690; 85025; 93976; 96361; 96372; 96374; 96375; 99285; J0500; J1885; J2270; J2405; J7030; Q0092

== ENCOUNTER 2024-01-25 19:37 | Emergency (ER) | payer OTHER ==
[~2024-01-25] VITALS: Ht 152.4 cm; Wt 77.1 kg
[~2024-01-25 19:37] MED LIST changes: +BEN10 PO
[2024-01-25 19:49] VITALS: BP 184/100; PULSE 96; RESP 22; TEMP 97.8; O2SAT 98
[2024-01-25] MEDS: NACL 0.9% 1,000 ML IV ONE (20:49)
[2024-01-25] MEDS: MORPHINE SULFATE 4 MG/ML SYR IVP ONE (20:54)
[2024-01-25 21:04] LABS: BASOPHILS % (AUTO) 0.3 % (0.0-2.0); EOSINOPHILS % (AUTO) 0.7 % (0.0-4.0); HEMATOCRIT 40.2 % (36-48); HEMOGLOBIN 13.5 g/dL (12.0-16.0); LYMPHOCYTES # (AUTO) 1.3 K/uL (2.5-16.5); LYMPHOCYTES % (AUTO) 20.2 % (20.5-51.1); MEAN CORPUSCULAR HEMOGLOBIN 30 pg (27-31); MEAN CORPUSCULAR HGB CONC 34 g/dL (33-37); MONOCYTES # (AUTO) 0.5 K/uL (0.8-1.0); MONOCYTES % (AUTO) 7.3 % (1.7-9.3); NEUTROPHILS # (AUTO) 4.6 K/uL (1.8-7.7); NEUTROPHILS % (AUTO) 71.5 % (42.2-75.2); PLATELET COUNT (AUTO) 257 K/uL (140-450); RED BLOOD CELL COUNT(AUTO) 4.51 MIL/uL (4.20-5.40); RED CELL DISTRIBUTION WIDTH 15.4 % (11.6-13.7); WHITE BLOOD COUNT (AUTO) 6.5 K/uL (4.8-10.8)
[2024-01-25 21:07] LABS: APPEARANCE,URINE CLEAR (CLEAR); BILIRUBIN,URINE NEGATIVE (NEGATIVE); BLOOD, URINE NEGATIVE (NEGATIVE); COLOR,URINE YELLOW (YELLOW); LEUKOCYTE ESTERASE ,URINE NEGATIVE (NEGATIVE); NITRITE, URINE NEGATIVE (NEGATIVE); PH,URINE 6.5 (5.0-9.0); PROTEIN,URINE NEGATIVE (NEGATIVE); UGLUCOSE NEGATIVE (NEGATIVE); UROBILINOGEN,URINE 0.2 EU/dL (0.2 - 1)
[2024-01-25 21:09] VITALS: PULSE 74
[2024-01-25 21:25] LABS: ANION GAP 14.3 (8-16); CALCIUM 9.8 mg/dL (8.5-10.1); CARBON DIOXIDE 27.5 mmol/L (21-32); CREATININE 0.7 mg/dL (0.6-1.3); POTASSIUM 3.8 mmol/L (3.5-5.1)
[2024-01-25] MEDS: KETOROLAC 30 MG/ML VIAL IVP ONE (21:37)
[2024-01-25] MEDS: ACETAMINOPHEN EXTRA STRENGTH 500 MG TAB PO ONE (22:31)
[2024-01-25 23:24] VITALS: O2SAT 100
[2024-01-25 23:58] VITALS: BP 130/72; RESP 16; O2SAT 99
[2024-01-26] MEDS ORDERED: IBUP-2213 PO (00:43)
[2024-01-26] MEDS ORDERED: BEN10 PO (00:43)
== END 2024-01-26 00:54 | disposition home or self-care (01) ==
LOC: MED 19:38
DX: R10.11 Right upper quadrant pain (principal); R51.9 Headache, unspecified; E11.9 Type 2 diabetes mellitus without complications; I10 Essential (primary) hypertension; Z79.1 Long term (current) use of non-steroidal anti-inflammatories (NSAID); Z79.899 Other long term (current) drug therapy
CPT/HCPCS: 36415; 70450; 76705; 80048; 81003; 81025; 83690; 85025; 96361; 96374; 96375; 99285; J1885; J2270; J7030; Q0092

== ENCOUNTER 2024-04-14 21:58 | Emergency (ER) | payer OTHER ==
[~2024-04-14] VITALS: Ht 152.4 cm; Wt 74.4 kg
[2024-04-14 22:16] VITALS: BP 174/103; PULSE 88; RESP 20; TEMP 98.2; O2SAT 100
[2024-04-14 22:44] LABS: BASOPHILS % (AUTO) 0.2 % (0.0-2.0); EOSINOPHILS # (AUTO) 0.1 K/uL (0-0.4); EOSINOPHILS % (AUTO) 2.4 % (0.0-4.0); HEMATOCRIT 37.6 % (36-48); HEMOGLOBIN 12.7 g/dL (12.0-16.0); LYMPHOCYTES # (AUTO) 1.2 K/uL (2.5-16.5); LYMPHOCYTES % (AUTO) 20.7 % (20.5-51.1); MEAN CORPUSCULAR HEMOGLOBIN 30 pg (27-31); MEAN CORPUSCULAR HGB CONC 34 g/dL (33-37); MEAN CORPUSCULAR VOLUME 88.3 fL (80-94); MONOCYTES # (AUTO) 0.5 K/uL (0.8-1.0); MONOCYTES % (AUTO) 8.2 % (1.7-9.3); NEUTROPHILS # (AUTO) 4.1 K/uL (1.8-7.7); NEUTROPHILS % (AUTO) 68.5 % (42.2-75.2); PLATELET COUNT (AUTO) 220 K/uL (140-450); RED BLOOD CELL COUNT(AUTO) 4.26 MIL/uL (4.20-5.40); RED CELL DISTRIBUTION WIDTH 15.3 % (11.6-13.7)
[2024-04-14] MEDS: KETOROLAC 30 MG/ML VIAL IVP ONE (22:44)
[2024-04-14 22:55] LABS: ANION GAP 13.2 (8-16); CALCIUM 9.3 mg/dL (8.5-10.1); CARBON DIOXIDE 28.5 mmol/L (21-32); CREATININE 0.6 mg/dL (0.6-1.3); POTASSIUM 3.7 mmol/L (3.5-5.1)
[2024-04-14 23:01] LABS: APPEARANCE,URINE CLEAR (CLEAR); BILIRUBIN,URINE NEGATIVE (NEGATIVE); BLOOD, URINE NEGATIVE (NEGATIVE); COLOR,URINE YELLOW (YELLOW); LEUKOCYTE ESTERASE ,URINE NEGATIVE (NEGATIVE); NITRITE, URINE NEGATIVE (NEGATIVE); PROTEIN,URINE NEGATIVE (NEGATIVE); UGLUCOSE NEGATIVE (NEGATIVE); UROBILINOGEN,URINE 0.2 EU/dL (0.2 - 1)
[2024-04-14 23:08] LABS: ALBUMIN 3.6 g/dL (3.4-5.0); BILIRUBIN,DIRECT 0.1 mg/dL (0.0-0.3); TOTAL BILIRUBIN 0.3 mg/dL (0.0-1.0); TOTAL PROTEIN, SERUM 8.4 g/dL (6.4-8.2)
[2024-04-15] MEDS: MORPHINE SULFATE 4 MG/ML SYR IVP ONE (00:33)
[2024-04-15 01:07] VITALS: BP 126/76; PULSE 76; RESP 14; O2SAT 99
[2024-04-15] MEDS ORDERED: ACET-8905 PO (01:11)
[2024-04-15] MEDS ORDERED: IBUP-2213 PO (01:11)
== END 2024-04-15 01:20 | disposition home or self-care (01) ==
LOC: MED 21:58
DX: R10.31 Right lower quadrant pain (principal); E11.9 Type 2 diabetes mellitus without complications; I10 Essential (primary) hypertension; Z98.890 Other specified postprocedural states; Z79.899 Other long term (current) drug therapy
CPT/HCPCS: 36415; 74176; 80048; 80076; 81003; 83690; 85025; 96374; 96375; 99285; J1885; J2270